=== PATIENT | male | born 1985 | race Hispanic/Latino ===

== ENCOUNTER 2023-10-04 09:50 | Emergency (ER) | payer SELFPAY ==
[2023-10-04 09:52] VITALS: BP 149/84
--- NOTE | 2023-10-04 10:19 | EDRN ---
Darrell WHITTAKER in room w/pt.
[2023-10-04] MEDS: DELTASONE 50 MG PO (10:43)
[2023-10-04 10:44] VITALS: BMI 42.8
[2023-10-04 11:00] VITALS: BP 115/67
--- NOTE | 2023-10-04 11:03 | ED.MUSCINJ ---
HPI-Injury
General
Chief Complaint: Musculo-Skeletal Complaint
Source: patient
Exam Limitations: none
Time Seen by Provider: 10/04/23 10:02
Travel History
Have you had any contact with someone who has COVID-19?: No
Do you have any symptoms of coronavirus? Fever > 100 degrees, chills, cough, shortness of breath, sore throat, loss of taste or smell, muscle aches, or headache?: No
History of Present Illness-Injury
Initial Injury comments:
37-year-old male presents complaining of onset of to the hands starting this morning. Mainly at the long and ring fingers bilaterally. He denies associated headache neck pain chest pain or shortness of breath. No rash or fever. He states several
years ago he was diagnosed with gout and was treated with anti-inflammatories. The symptom feels similar to prior issues in the past. No leg symptoms. He is not diabetic. No other complaints at this time
Past History
Past History
ED Past Medical History: Other (Gallbladder stones and sludge)
ED Past Surgical History: Orthopedic (Right hand surgery); Negative Appendectomy or Bowel resection
Social History
Tobacco: Smoker
Alcohol: Occasional
Drug: None
Personal:
Living: with family
Employment: Employed
Family History
Family History: Other
Phy Exam
Physical Exam
Physical Exam:
General: Well-appearing male no acute respiratory distress
HEENT: Normocephalic atraumatic
Heart: Regular rate and rhythm no murmurs
Lungs: Clear to auscultation bilaterally no wheezing
Abdomen: Soft nontender nondistended no guarding rebound normal bowel sounds extremities: No cyanosis or edema
Neurologic exam: Alert and oriented x 3 no facial asymmetry or slurred speech good sensation to light touch both hands
Vascular: 2+ radial pulse right wrist and left wrist skin is warm no rash or lesion
Musculoskeletal exam: Active range of motion of fingers is painful however passive is less painful. No swelling of the digits
Injury Course
Orders/Labs/Results
Orders:
Orders
10/04/23 10:26
Prednisone [Deltasone] 50 mg PO NOW STA
*Critical Care Note
Total Time (30-74mins, 75-104mins- exclusive of procedures): Not Applicable
Update Note
Update Note:
Bilateral hand pain. Question Neuropathy versus inflammatory condition such as gout. No concerning findings of cellulitis. There is no neurologic deficit. Will treat with steroids
ED Attending Note
-
Portions of this chart may have been created with voice recognition software.� Occasional wrong word or��sound alike� substitutions may have occurred due to the inherent limitations of voice recognition software.
Discharge Plan
Departure
Patient Disposition: Home (Routine Discharge)
Date of Disposition: 10/04/23
Time of Disposition: 11:08
Patient with high blood pressure during this ER visit?: No
Discharge Problem:
Hand pain
Instructions: Gout ED
Prescriptions:
New
prednisone 10 mg Tablet
See Rx Instructions .ROUTE .COMPLEX Qty: 30 0RF
Rx Instructions:
Take By Mouth:
40 mg daily x3 days, 30 mg daily x3 days,
20 mg daily x3 days, 10 mg daily x3 days.
No Action
lansoprazole 30 MG tablet,disintegrat, delay rel
30 mg PO DAILY Qty: 14 0RF
Rx Instructions:
Take with dinner
pantoprazole [Protonix] 40 mg tablet,delayed release (DR/EC)
40 mg PO BID Qty: 30 0RF
sucralfate [Carafate] 1 gram tablet
1 g PO AC Qty: 60 0RF
oxycodone 5 mg tablet
5 mg PO Q8H PRN (Reason: pain) Qty: 8 0RF
pantoprazole [Protonix] 40 mg tablet,delayed release (DR/EC)
40 mg PO DAILY Qty: 10 0RF
sucralfate [Carafate] 1 gram tablet
1 g PO ACHS Qty: 40 0RF
pantoprazole [Protonix] 40 mg tablet,delayed release (DR/EC)
40 mg PO DAILY Qty: 30 0RF
Referrals:
NONE,* [Family Provider] -
Activity Restrictions/Additional Instructions:
Use steriods as directed. Rest. Return if needed otherwise follow up with PMD.
Interventions
Interventions:
*Risk Screen - Suicide Last Done: 10/04/23 10:15
*General Assessment Last Done: 10/04/23 10:15
*Neglect/Abuse Screening Last Done: 10/04/23 10:15
ED- Fall Risk Assessment Last Done: 10/04/23 10:15
*ED COVID-19 Vaccine History Last Done: 10/04/23 10:15
ED-Musculoskeletal Assessment Last Done: 10/04/23 10:15
== END 2023-10-04 11:25 | disposition home or self-care (01) ==
LOC: EMR 09:50
PROVIDERS: EMERGENCY PHYSICIAN Emergency Medicine
DX: M79.642 Pain in left hand (principal); M79.641 Pain in right hand; F17.200 Nicotine dependence, unspecified, uncomplicated
CPT/HCPCS: 99283

== ENCOUNTER 2024-03-07 07:43 | Emergency (ER) | payer SELFPAY ==
[2024-03-07 07:46] VITALS: BP 133/65
--- NOTE | 2024-03-07 08:22 | ED.MUSCINJ ---
HPI-Injury
<Andrew Farrell DO, Resident - Last Filed: 03/07/24 09:29>
General
Chief Complaint: Musculo-Skeletal Complaint
Source: patient
Time Seen by Provider: 03/07/24 07:52
History of Present Illness-Injury
Is this injury a work related problem?: Yes
Is pt an associate of [facility]?: No
Initial Injury comments:
Pt is a 38 YO M presenting to the ED after hitting his right arm against a metal frame at work. He reports experiencing 10/10 pain and is having significant difficulty with movement of the right lower extremity. 10 years ago he had surgery of the
radius with plates and screws placed at [place], [place] with Dr. De La Cruz. He did not take any medications prior to arriving.
Past History
<Andrew Farrell DO, Resident - Last Filed: 03/07/24 09:29>
Past History
ED Past Medical History: Other (Gallbladder stones and sludge)
ED Past Surgical History: Orthopedic (Right hand surgery); Negative Appendectomy or Bowel resection
Patient has exhibited threatening behavior?: No
Social History
Tobacco: Smoker
Alcohol: Occasional
Drug: None
Personal:
Living: with family
Employment: Employed
Family History
Family History: Other
Review of Systems
<Andrew Farrell DO, Resident - Last Filed: 03/07/24 09:29>
Review of Systems
Allergies reviewed?: Yes
Constitutional: Reports other (pain)
Respiratory: Reports no symptoms
Cardiac: Reports no symptoms
Musculoskeletal: Reports muscle pain and other (right arm pain)
Skin: Reports other (swelling of right arm)
Neurological: Reports numbness (numbness of digits 1-2 on right hand)
Musculoskeletal Injury Exam
<Andrew Farrell DO, Resident - Last Filed: 03/07/24 09:29>
Musculoskeletal Injury Exam
Right Lower Medial Radial Arm:
Pain with Movement?: Severe
Tender to palpation?: Severe
Soft tissue swelling?: Moderate
External deformity and angulation?: None
Joint effusion?: None
Hematoma-local bleeding into tissue?: None
Strain- Sprain- Tear (Connective tissue injury)?: Severe
Crepitus with movement?: No
Joint instability?: No
Malalignment/deformity?: No
Range of motion: Limited (significant pain with pronation and flexion of wrist)
Capillary Refill: normal
Phy Exam
<Andrew Farrell DO, Resident - Last Filed: 03/07/24 09:29>
General Physical Exam
General Presentation: well appearing and mild distress
General age: appears stated age
General Skin: warm
General Mental: alert
General Hydration: appears well hydrated
Musculoskeletal Exam
Musculoskeletal Exam: other (pain with pronation and flexion of wrist)
Injury Course
<Andrew Farrell DO, Resident - Last Filed: 03/07/24 09:29>
Orders/Labs/Results
Orders:
Orders
03/07/24 07:49
CR Forearm - Right 2 View Urgent
Comment:
Reason For Exam: injury/pain
03/07/24 08:27
Ibuprofen [Motrin] 800 mg PO NOW STA
03/07/24 09:14
Sling Right-Treatment ONCE
<Isidoro Carrion, DO - Last Filed: 03/07/24 09:45>
Orders/Labs/Results
Orders:
Orders
03/07/24 07:49
CR Forearm - Right 2 View Urgent
Comment:
Reason For Exam: injury/pain
03/07/24 08:27
Ibuprofen [Motrin] 800 mg PO NOW STA
03/07/24 09:14
Sling Right-Treatment ONCE
<Andrew Farrell DO, Resident - Last Filed: 03/07/24 09:29>
MDM/Problems Addressed
Differential Diagnosis Includes:
radial fracture, muscle strain
MDM/Problems Addressed:
Pt is a 38 YO M with pmh of radial fracture with acute injury to right lower extremity after hitting it against a metal frame at work this morning. His pain is being managed with 800 mg Ibuprofen and ice. CR was ordered and report shows no break.
Recommended 2 days off from work and gradual transition back. For pain management at home, discussed 800 mg Ibuprofen Q6-8H or 400 mg Tylenol Q4H. Patient was discharged with sling and note for work.
Chronic conditions affecting care:
previous radial fracture
Acute Exacerbation and/or Progression of Chronic Illness:
previous radial fracture
<Andrew Farrell DO, Resident - Last Filed: 03/07/24 09:29>
*Radiology
Radiology exam reviewed: preliminary read by ED provider (CR right arm read and imaging negative for fracture)
*Pulse Oximetry
Patient hypoxic: no
*EKG
Interpreted by ED Provider?: NA
*Rail Project Engineer Interpretation
Rate: Rail Project Engineer- N/A
*Critical Care Note
Total Time (30-74mins, 75-104mins- exclusive of procedures): Not Applicable
ED Attending Note
<Andrew Farrell DO, Resident - Last Filed: 03/07/24 09:29>
-
Portions of this chart may have been created with voice recognition software.� Occasional wrong word or��sound alike� substitutions may have occurred due to the inherent limitations of voice recognition software.
<Isidoro Carrion DO - Last Filed: 03/07/24 09:45>
ED Attending Note
Patient seen and examined by attending physician: Yes
I performed a history and physical exam of patient and discussed management with resident, I reviewed resident's note and agree with documented findings and plan of care.: Yes
ED Attending Note:
I reviewed and agree with patient treatment plan by Andrew Farrell. My exam revealed 30-year-old male in no acute distress. Tender palpation proximal third of the forearm on the right. No fracture seen on x-ray. Reviewed with Dr. Lin, who also
agrees no fracture. Patient will be discharged to follow-up with primary. Work note given.
Discharge Plan
Departure
Patient Disposition: Home (Routine Discharge)
Date of Disposition: 03/07/24
Time of Disposition: 09:17
Patient with high blood pressure during this ER visit?: Yes
Condition: Good
Discharge Problem:
Injury of right forearm and wrist
Instructions: Muscle and Bone Pain (DC), Contusion (DC), BLOOD PRESSURE
Prescriptions:
No Action
lansoprazole 30 MG tablet,disintegrat, delay rel
30 mg PO DAILY Qty: 14 0RF
Rx Instructions:
Take with dinner
pantoprazole [Protonix] 40 mg tablet,delayed release (DR/EC)
40 mg PO BID Qty: 30 0RF
sucralfate [Carafate] 1 gram tablet
1 g PO AC Qty: 60 0RF
oxycodone 5 mg tablet
5 mg PO Q8H PRN (Reason: pain) Qty: 8 0RF
pantoprazole [Protonix] 40 mg tablet,delayed release (DR/EC)
40 mg PO DAILY Qty: 10 0RF
sucralfate [Carafate] 1 gram tablet
1 g PO ACHS Qty: 40 0RF
pantoprazole [Protonix] 40 mg tablet,delayed release (DR/EC)
40 mg PO DAILY Qty: 30 0RF
prednisone 10 mg Tablet
See Rx Instructions .ROUTE .COMPLEX Qty: 30 0RF
Rx Instructions:
Take By Mouth:
40 mg daily x3 days, 30 mg daily x3 days,
20 mg daily x3 days, 10 mg daily x3 days.
Referrals:
Gisele Ceja PA [Family Provider] - Follow up in 5-7 days
Stand Alone Forms: Return to Work
Interventions
Interventions:
*Risk Screen - Suicide Last Done: 03/07/24 07:46
*General Assessment Last Done: 03/07/24 08:13
*Neglect/Abuse Screening Last Done: 03/07/24 07:46
ED- Fall Risk Assessment Last Done: 03/07/24 09:27
*ED COVID-19 Vaccine History Last Done: 03/07/24 07:46
*Nursing Disposition Last Done: 03/07/24 09:27
ED-Musculoskeletal Assessment Last Done: 03/07/24 08:14
Discharge Date and Time
Discharge Date/Time: 03/07/24 09:35
Print Language: LATVIAN
[2024-03-07] MEDS: MOTRIN 800 MG PO (08:34)
[2024-03-07 09:26] VITALS: BP 112/69
== END 2024-03-07 09:35 | disposition home or self-care (01) ==
LOC: EMR 07:43
PROVIDERS: EMERGENCY PHYSICIAN Emergency Medicine; FAMILY PHYSICIAN Physician Assistant
DX: S59.911A Unspecified injury of right forearm, initial encounter (principal); M79.631 Pain in right forearm; R20.0 Anesthesia of skin; M79.18 Myalgia, other site; W22.09XA Striking against other stationary object, initial encounter; Y93.89 Activity, other specified; Y92.89 Other specified places as the place of occurrence of the external cause; Y99.0 Civilian activity done for income or pay; R03.0 Elevated blood-pressure reading, without diagnosis of hypertension; F17.200 Nicotine dependence, unspecified, uncomplicated
CPT/HCPCS: 99283; 73090

== ENCOUNTER 2024-06-09 19:57 | Emergency (ER) | payer OTHER, SELFPAY ==
[2024-06-09 20:04] VITALS: BP 144/92
[2024-06-09 20:24] LABS: % Basophils 0.6 % (0-2); % Eosinophils 1.8 % (0-6); % Immature Granulocytes 0.4 % (0-0.5); % Lymphocytes 23.2 % (20.5-51.1); % Monocytes 8.4 % (1.7-9.3); % Neutrophils 65.6 % (42.2-75.2); Absolute Basophils 0.1 10^3/uL (0-0.2); Absolute Eosinophils 0.2 10^3/uL (0-0.7); Absolute Lymphocytes 2.2 10^3/uL (1.2-3.4); Absolute Monocytes 0.8 10^3/uL (0.1-0.6); Absolute Neutrophils 6.1 10^3/uL (1.4-6.5); Hematocrit 41.7 % (39.0-52.0); Hemoglobin 15.3 g/dL (13.0-18.0); Mean Corp Hgb Conc. 36.7 g/dL (33.0-37.0); Mean Corpuscular Hgb 31.6 pg (27.0-31.0); Mean Corpuscular Volume 86.2 fL (80.0-94.0); Mean Platelet Volume 9.4 fL (7.4-10.4); Nucleated Red Blood Cells % 0 % (-); Platelet Count 254 10^3/uL (130-400); Red Blood Cell Count 4.84 10^6/uL (4.70-6.10); Red Cell Dist. Width 12.4 % (11.5-14.5); White Blood Cell Count 9.3 10^3/uL (4.8-10.8)
[2024-06-09 20:39] LABS: ALT (SGPT) 22 U/L (0-50); AST (SGOT) 25 U/L (17-59); Albumin 4.3 g/dl (3.5-5.0); Alkaline Phosphatase 57 U/L (38-126); Blood Urea Nitrogen 15 mg/dl (9-20); Calcium 9.4 mg/dl (8.4-10.2); Carbon Dioxide 21 mmol/L (22-30); Chloride 104 mmol/L (98-107); Glucose 112 mg/dl (70-99); Potassium 4.2 mmol/L (3.5-5.1); Sodium 138 mmol/L (135-145); Total Bilirubin 0.5 mg/dl (0.2-1.3); Total Protein 6.8 g/dl (6.3-8.2); eGFR > 60.00
[2024-06-09 22:31] VITALS: BP 123/73
[2024-06-09 23:35] VITALS: BP 114/81; BMI 45.3
[2024-06-09] MEDS: NSS 1000 IV (23:36)
[2024-06-09] MEDS: TORADOL 15 MG IV (23:36)
[2024-06-09] MEDS: PEPCID 20 MG IV (23:37)
[2024-06-09] MEDS: MAALOX 30 ML PO (23:37)
--- NOTE | 2024-06-09 23:43 | ED.GENMED ---
History of Present Illness
General
Chief Complaint: Abdominal Pain
Time Seen by Provider: 06/09/24 23:06
History of Present Illness
History of Present Illness:
38-year-old male with prior history of GERD presenting to the emergency department for upper abdominal pain. Patient reports symptoms started around 2 PM this afternoon. He has since had several episodes of vomiting. Reports that he did have
[employer] prior to onset of symptoms, however the food was not spicy. He notes that he takes Nexium intermittently, last had yesterday. Denies changes in his stool. Denies chest pain or difficulty breathing. Denies history of abdominal surgeries.
Denies fever. Denies additional acute medical complaints
Past History
Past History
ED Past Medical History: Other (Gallbladder stones and sludge)
ED Past Surgical History: Orthopedic (Right hand surgery); Negative Appendectomy or Bowel resection
Patient has exhibited threatening behavior?: No
Social History
Tobacco: Smoker
Alcohol: Occasional
Drug: None
Personal:
Living: with family
Employment: Employed
Family History
Family History: Other
Phy Exam
Physical Exam
Physical Exam:
General: Well-appearing, no clinical signs of dehydration, nontoxic and in no acute distress
HEENT: protecting airway
Neck: appears supple
CV: Normal heart rate, regular rhythm
Resp: No accessory muscle use, no increased work of breathing, lungs clear to auscultation bilaterally
Abd: Reproducible tenderness to the epigastric and right upper quadrant, no rebound or guarding. Otherwise soft and nondistended
Extremities: No deformities, no swelling
Neuro: alert, no focal neurologic deficit
: deferred
Rectal: deferred
Psych: Normal affect
Skin: Intact
Course
Orders/Labs/Results
Orders:
Orders
06/09/24 19:59
Electrocardiogram (*1) Urgent
Reason for Study: Abdominal Pain
EKG- Treatment ONCE
06/09/24 20:12
Complete Blood Count/With Diff Urgent
Comprehensive Metabolic Panel Urgent
Lipase Urgent
Comment: ADD ON
06/09/24 23:22
0.9% Sodium Chloride 1000 ml [Nss] 1,000 ml IV BOLUS
Famotidine [Pepcid] 20 mg IV NOW STA
Ketorolac [Toradol] 15 mg IV NOW STA
Mag Hydrox/Al Hydrox/Simeth [Maalox] 30 ml PO NOW STA
06/09/24 23:28
US Abdomen Complete/Upper Urgent
Comment:
Reason For Exam: RUQ pain, vomiting
06/09/24 23:45
Add On- LAB Urgent
Tests Added?: lipase
06/10/24 01:07
Ondansetron Injectable [Zofran] 4 mg IV NOW STA
06/10/24 01:08
Viscous Lidocaine 2% [Xylocaine Viscous Cup] 15 ml PO ONCE ONE
06/10/24 01:30
CT Abd/pelvis W Iv Cont Urgent
Comment:
Reason For Exam: upper abdominal pain
Abnormal Lab Results
06/09/24
20:12
MCH 31.6 H pg
(27.0-31.0)
Absolute Monos (auto) 0.8 H 10^3/uL
(0.1-0.6)
Carbon Dioxide 21 L mmol/L
(22-30)
Glucose 112 H mg/dl
(70-99)
06/09/24 20:12
06/09/24 20:12
Vital Signs
Initial and Last Documented VS:
Initial Vital Signs
Temp Pulse Resp BP Pulse Ox
97.9 F 73 16 144/92 98
06/09/24 20:04 06/09/24 20:04 06/09/24 20:04 06/09/24 20:04 06/09/24 20:04
Last Documented Vital Signs
Temp Pulse Resp BP Pulse Ox
97.9 F 51 16 114/74 98
06/09/24 20:04 06/10/24 03:25 06/10/24 03:25 06/10/24 03:25 06/10/24 03:25
MDM/Problems Addressed
MDM/Problems Addressed:
38-year-old male with history of GERD/gastritis presenting for upper abdominal pain with vomiting. Vital signs on arrival are normal.
On exam patient is well-appearing, no acute distress or discomfort. He is afebrile, nontoxic. On abdominal exam, generalized tenderness to the epigastric and right upper quadrant. No rebound or guarding. Differential considerations include GERD
versus gastritis versus pancreatitis versus cholelithiasis versus cholecystitis. For this reason we will obtain laboratory analysis including lipase. Will also obtain right upper quadrant ultrasound imaging. For therapeutics will administer IV
fluids, Pepcid, Maalox, Toradol and reassess for improvement.
01:00 -Labs are unremarkable and ultrasound shows distended gallbladder without additional signs of acute cholecystitis. On reassessment patient is resting comfortably, does note symptom improvement, however reports that it still present,
requesting more medication. Will administer Zofran and viscous lidocaine. Given persistence of symptoms, will obtain CT abdomen pelvis to ensure no additional acute process.
04:50 -CT without acute abnormality. Does show diffuse gastric wall thickening, consistent with patient's symptoms. Feel stable for discharge with continued supportive therapy with PPI. Patient continues to rest comfortably. Advised outpatient
GI follow-up. Return precautions discussed and patient verbalized understanding
*Critical Care Note
Total Time (30-74mins, 75-104mins- exclusive of procedures): Not Applicable
ED Attending Note
-
Portions of this chart may have been created with voice recognition software.� Occasional wrong word or��sound alike� substitutions may have occurred due to the inherent limitations of voice recognition software.
Discharge Plan
Departure
Patient Disposition: Home (Routine Discharge)
Date of Disposition: 06/10/24
Time of Disposition: 04:53
Patient with high blood pressure during this ER visit?: No
Condition: Good
Discharge Problem:
Gastritis
Instructions: Acid Reflux and GERD in Adults (DC), Gastritis (DC)
Prescriptions:
No Action
lansoprazole 30 MG tablet,disintegrat, delay rel
30 mg PO DAILY Qty: 14 0RF
Rx Instructions:
Take with dinner
pantoprazole [Protonix] 40 mg tablet,delayed release (DR/EC)
40 mg PO BID Qty: 30 0RF
sucralfate [Carafate] 1 gram tablet
1 g PO AC Qty: 60 0RF
oxycodone 5 mg tablet
5 mg PO Q8H PRN (Reason: pain) Qty: 8 0RF
pantoprazole [Protonix] 40 mg tablet,delayed release (DR/EC)
40 mg PO DAILY Qty: 10 0RF
sucralfate [Carafate] 1 gram tablet
1 g PO ACHS Qty: 40 0RF
pantoprazole [Protonix] 40 mg tablet,delayed release (DR/EC)
40 mg PO DAILY Qty: 30 0RF
prednisone 10 mg Tablet
See Rx Instructions .ROUTE .COMPLEX Qty: 30 0RF
Rx Instructions:
Take By Mouth:
40 mg daily x3 days, 30 mg daily x3 days,
20 mg daily x3 days, 10 mg daily x3 days.
Referrals:
NONE,* [Family Provider] -
Activity Restrictions/Additional Instructions:
You were seen in the emergency department for upper abdominal pain
You were found to have inflammation to your stomach, consistent with gastritis
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
Return to the emergency department for any worsening of your symptoms, or any development of chest pain, difficulty breathing, abdominal pain with persistent vomiting and inability to tolerate food or liquid by mouth (concern for dehydration),
weakness, headache or confusion, fever greater than 100.4, or any additional symptoms that are concerning to you.
Thank you for choosing [facility].
Interventions
Interventions:
*Risk Screen - Suicide Last Done: 06/09/24 20:00
*General Assessment Last Done: 06/09/24 22:46
*Neglect/Abuse Screening Last Done: 06/09/24 22:46
*ED COVID-19 Vaccine History Last Done: 06/09/24 22:46
*Nursing Disposition Last Done: 06/10/24 05:05
NW-Xqygys-Jycwkxujcx Assessment Last Done: 06/09/24 23:35
Discharge Date and Time
Discharge Date/Time: 06/10/24 05:05
Print Language: SAO TOMEAN
[2024-06-10 00:40] LABS: Lipase 72 U/L (23-300)
[2024-06-10 03:25] VITALS: BP 114/74
== END 2024-06-10 05:05 | disposition home or self-care (01) ==
LOC: EMR 19:57
PROVIDERS: Student in an Organized Health Care Education/Training Program; EMERGENCY PHYSICIAN Student in an Organized Health Care Education/Training Program
DX: K29.00 Acute gastritis without bleeding (principal); K82.8 Other specified diseases of gallbladder; K21.9 Gastro-esophageal reflux disease without esophagitis; F17.200 Nicotine dependence, unspecified, uncomplicated
CPT/HCPCS: 99284; 96374; 96375 ×2; 96361; 74177; 76700; 80053; 83690; 85025; 93005; Q9967

== ENCOUNTER 2024-09-10 04:08 | Emergency (ER) | payer OTHER, SELFPAY ==
[2024-09-10 04:08] VITALS: BMI 44.9
[2024-09-10 04:10] VITALS: BP 124/80
--- NOTE | 2024-09-10 04:16 | ED.GENMED ---
History of Present Illness
General
Chief Complaint: Abdominal Pain
Time Seen by Provider: 09/10/24 04:17
History of Present Illness
History of Present Illness:
TIME OF INITIAL ENCOUNTER: 4:20 AM
HPI: The patient started having some abdominal discomfort 4 hours ago and then the pain dramatically worsened around 2 hours ago. This is associated with vomiting. He has not had any diarrhea. He had a similar less severe episode in the past.
EXAM:
GENERAL: The patient appears very uncomfortable
HEENT: Moist oral mucosa
CARDIOVASCULAR: No murmurs, normal heart rate, regular rhythm, No chest wall tenderness
PULMONARY: No respiratory distress, breath sounds are clear and equal
ABDOMEN: Soft with no peritoneal signs, moderate diffuse abdominal tenderness more so in the upper abdomen, elevated BMI
NEUROLOGIC: Excellent strength all extremities, no coordination deficits
PSYCHIATRIC: Appropriate mental status, normal insight and judgement
EXTREMITIES: Nontender, no edema, moves all extremities equally
SKIN: No rash, no lesions
NUMBER AND COMPLEXITY OF PROBLEMS ADDRESSED AT THE ENCOUNTER
� Chronic conditions affecting care: Is a smoker, prior imaging showed gallbladder sludge and stones, GERD
� Acute Exacerbation and/or Progression of Chronic Illness: This is an acute but recurring problem
� Differential Diagnosis includes: Chemistries are unremarkable, CBC is normal, LFTs and lipase normal
AMOUNT AND/OR COMPLEXITY OF DATA TO BE REVIEWED AND ANALYZED
� I performed an independent evaluation of and my interpretation is:
EKG:
CT: CT imaging shows a distended gallbladder however I did compare this to the CAT scan from 06/10/2024 and at that time the morphology of the gallbladder was the same�at that time there was no sign of cholecystitis or gallstones
X-rays:
Laboratory Studies: White count is 7.1, hemoglobin 15.5, chemistries unremarkable, LFTs and lipase normal
Other: Ultrasound imaging of the right upper quadrant unremarkable
� Review of other/old records: The patient was seen here with epigastric pain 2 months ago and at that time CT imaging showed diffuse gastric wall thickening
� Clinical information was obtained by an independent historian: None needed
� Prescriptions/Medications Considered but not given:
� Further testing considered but not performed:
RISK OF COMPLICATIONS AND/OR MORBIDITY OR MORTALITY OF PATIENT MANAGEMENT
� Social determinants of health affecting care: Lives at home
� Discussion with other providers:
� Escalation of care including admission/observation vs risk of discharge considered: See below
ANY OTHER UPDATES:
7 AM: Pain persists however the ED workup is unremarkable. No clear indication for admission to the hospital. Will give a short course of tramadol.
Past History
Past History
ED Past Medical History: Other (Gallbladder stones and sludge)
ED Past Surgical History: Orthopedic (Right hand surgery); Negative Appendectomy or Bowel resection
Patient has exhibited threatening behavior?: No
Social History
Tobacco: Smoker
Alcohol: Occasional
Drug: None
Personal:
Living: with family
Employment: Employed
Family History
Family History: Other
Phy Exam
Physical Exam
Physical Exam:
See HPI
Course
Orders/Labs/Results
Orders:
Orders
09/10/24 04:24
CT Abd/pelvis W Iv Cont Urgent
Comment:
Reason For Exam: diffuse severe abd pain; vomiting
0.9% Sodium Chloride 1000 ml [Nss] 1,000 ml IV BOLUS
HYDROmorphone [Dilaudid] 1 mg IV NOW STA
Ondansetron Injectable [Zofran] 4 mg IV NOW STA
09/10/24 04:25
Famotidine [Pepcid] 20 mg IV NOW STA
09/10/24 04:34
Complete Blood Count/With Diff Urgent
Comprehensive Metabolic Panel Urgent
Lipase Urgent
09/10/24 05:49
Ketorolac [Toradol] 15 mg IV NOW STA
09/10/24 06:01
US Abdomen Limited Urgent
Reason For Exam: distended GB on CT; upper pain
Abnormal Lab Results
09/10/24
04:34
MCH 32.2 H pg
(27.0-31.0)
Absolute Monos (auto) 0.7 H 10^3/uL
(0.1-0.6)
Monocytes % 9.5 H %
(1.7-9.3)
Glucose 103 H mg/dl
(70-99)
09/10/24 04:34
09/10/24 04:34
Vital Signs
Initial and Last Documented VS:
Initial Vital Signs
Temp Pulse Resp BP Pulse Ox
36.6 C 64 18 124/80 100
09/10/24 04:10 09/10/24 04:10 09/10/24 04:10 09/10/24 04:10 09/10/24 04:10
Last Documented Vital Signs
Temp Pulse Resp BP Pulse Ox
36.6 C 64 18 102/89 99
09/10/24 04:10 09/10/24 04:10 09/10/24 04:10 09/10/24 06:00 09/10/24 06:30
*Critical Care Note
Total Time (30-74mins, 75-104mins- exclusive of procedures): Not Applicable
ED Attending Note
-
Portions of this chart may have been created with voice recognition software.� Occasional wrong word or��sound alike� substitutions may have occurred due to the inherent limitations of voice recognition software.
Discharge Plan
Departure
Patient Disposition: Home (Routine Discharge)
Date of Disposition: 09/10/24
Time of Disposition: 07:03
Patient with high blood pressure during this ER visit?: Yes
Discharge Problem:
Abdominal pain
Instructions: Abdominal Pain
Prescriptions:
New
tramadol 50 mg tablet
50 - 100 mg PO Q8H PRN (Reason: Pain) Qty: 14 0RF
No Action
lansoprazole 30 MG tablet,disintegrat, delay rel
30 mg PO DAILY Qty: 14 0RF
Rx Instructions:
Take with dinner
pantoprazole [Protonix] 40 mg tablet,delayed release (DR/EC)
40 mg PO BID Qty: 30 0RF
sucralfate [Carafate] 1 gram tablet
1 g PO AC Qty: 60 0RF
oxycodone 5 mg tablet
5 mg PO Q8H PRN (Reason: pain) Qty: 8 0RF
pantoprazole [Protonix] 40 mg tablet,delayed release (DR/EC)
40 mg PO DAILY Qty: 10 0RF
sucralfate [Carafate] 1 gram tablet
1 g PO ACHS Qty: 40 0RF
pantoprazole [Protonix] 40 mg tablet,delayed release (DR/EC)
40 mg PO DAILY Qty: 30 0RF
prednisone 10 mg Tablet
See Rx Instructions .ROUTE .COMPLEX Qty: 30 0RF
Rx Instructions:
Take By Mouth:
40 mg daily x3 days, 30 mg daily x3 days,
20 mg daily x3 days, 10 mg daily x3 days.
Referrals:
Amy Quan MD [Active] - As needed
NONE,* [Family Provider] -
Activity Restrictions/Additional Instructions:
The cause of your symptoms is unclear. If you are not already taking a PPI medication, I recommend that you take something like omeprazole which is [id number]. I sent a prescription for a short course of tramadol to the [facility] on [address]
have also given you the contact information for local GI doctor.
Interventions
Interventions:
*Risk Screen - Suicide Last Done: 09/10/24 04:10
*General Assessment Last Done: 09/10/24 04:10
*Neglect/Abuse Screening Last Done: 09/10/24 04:10
*ED COVID-19 Vaccine History Last Done: 09/10/24 04:10
BH-Gehpxu-Zqrafmrqma Assessment Last Done: 09/10/24 04:52
Discharge Date and Time
Print Language: MACEDONIAN
[2024-09-10] MEDS: DILAUDID 1 MG IV (04:39)
[2024-09-10] MEDS: ZOFRAN 4 MG IV (04:39)
[2024-09-10] MEDS: NSS 1000 IV (04:43)
[2024-09-10 04:44] LABS: % Basophils 0.6 % (0-2); % Eosinophils 2.6 % (0-6); % Immature Granulocytes 0.4 % (0-0.5); % Lymphocytes 30.6 % (20.5-51.1); % Monocytes 9.5 % (1.7-9.3); % Neutrophils 56.3 % (42.2-75.2); Absolute Eosinophils 0.2 10^3/uL (0-0.7); Absolute Lymphocytes 2.2 10^3/uL (1.2-3.4); Absolute Monocytes 0.7 10^3/uL (0.1-0.6); Hematocrit 43.3 % (39.0-52.0); Hemoglobin 15.5 g/dL (13.0-18.0); Mean Corp Hgb Conc. 35.8 g/dL (33.0-37.0); Mean Corpuscular Hgb 32.2 pg (27.0-31.0); Mean Corpuscular Volume 89.8 fL (80.0-94.0); Mean Platelet Volume 9.2 fL (7.4-10.4); Nucleated Red Blood Cells % 0 % (-); Platelet Count 263 10^3/uL (130-400); Red Blood Cell Count 4.82 10^6/uL (4.70-6.10); Red Cell Dist. Width 12.2 % (11.5-14.5); White Blood Cell Count 7.1 10^3/uL (4.8-10.8)
[2024-09-10] MEDS: PEPCID 20 MG IV (04:46)
[2024-09-10 04:52] VITALS: BP 117/71
[2024-09-10 04:58] LABS: ALT (SGPT) 25 U/L (0-50); AST (SGOT) 29 U/L (17-59); Albumin 4.2 g/dl (3.5-5.0); Alkaline Phosphatase 68 U/L (38-126); Blood Urea Nitrogen 17 mg/dl (9-20); Calcium 8.9 mg/dl (8.4-10.2); Carbon Dioxide 27 mmol/L (22-30); Chloride 102 mmol/L (98-107); Estimated Creatinine Clearance > 125 ml/min; Glucose 103 mg/dl (70-99); Lipase 99 U/L (23-300); Potassium 3.9 mmol/L (3.5-5.1); Sodium 138 mmol/L (135-145); Total Bilirubin 0.4 mg/dl (0.2-1.3); Total Protein 6.8 g/dl (6.3-8.2); eGFR > 60.00
[2024-09-10 05:00] VITALS: BP 132/87
[2024-09-10] MEDS: TORADOL 15 MG IV (05:54)
[2024-09-10 06:00] VITALS: BP 102/89
[2024-09-10 07:30] VITALS: BP 104/56
--- NOTE | 2024-09-10 07:30 | EDRN ---
REviewed discharge instructions with patient. Verbalized understanding. Calling family for a ride home.
== END 2024-09-10 07:50 | disposition home or self-care (01) ==
LOC: EMR 04:08
PROVIDERS: EMERGENCY PHYSICIAN Emergency Medicine
DX: R10.9 Unspecified abdominal pain (principal); F17.200 Nicotine dependence, unspecified, uncomplicated
CPT/HCPCS: 99285; 96374; 96375 ×3; 96361 ×2; 74177; 76705; 80053; 83690; 85025; Q9967

== ENCOUNTER 2024-12-27 22:53 | Emergency (ER) | payer OTHER, SELFPAY ==
[2024-12-27 22:57] VITALS: BP 101/61
[2024-12-27 23:13] LABS: % Basophils 0.6 % (0-2); % Eosinophils 1.9 % (0-6); % Immature Granulocytes 0.3 % (0-0.5); % Lymphocytes 26.4 % (20.5-51.1); % Monocytes 7.4 % (1.7-9.3); % Neutrophils 63.4 % (42.2-75.2); Absolute Basophils 0.1 10^3/uL (0-0.2); Absolute Eosinophils 0.2 10^3/uL (0-0.7); Absolute Lymphocytes 2.4 10^3/uL (1.2-3.4); Absolute Monocytes 0.7 10^3/uL (0.1-0.6); Absolute Neutrophils 5.6 10^3/uL (1.4-6.5); Hematocrit 41.1 % (39.0-52.0); Hemoglobin 14.9 g/dL (13.0-18.0); Mean Corp Hgb Conc. 36.3 g/dL (33.0-37.0); Mean Corpuscular Hgb 31.8 pg (27.0-31.0); Mean Corpuscular Volume 87.8 fL (80.0-94.0); Mean Platelet Volume 9.5 fL (7.4-10.4); Nucleated Red Blood Cells % 0 % (-); Platelet Count 234 10^3/uL (130-400); Red Blood Cell Count 4.68 10^6/uL (4.70-6.10); Red Cell Dist. Width 13.1 % (11.5-14.5); White Blood Cell Count 8.9 10^3/uL (4.8-10.8)
[2024-12-27 23:29] LABS: ALT (SGPT) 12 U/L (0-50); AST (SGOT) 20 U/L (17-59); Albumin 4.1 g/dl (3.5-5.0); Alkaline Phosphatase 54 U/L (38-126); Blood Urea Nitrogen 18 mg/dl (9-20); Calcium 9.1 mg/dl (8.4-10.2); Carbon Dioxide 28 mmol/L (22-30); Chloride 104 mmol/L (98-107); Glucose 103 mg/dl (70-99); Lipase 141 U/L (23-300); Potassium 3.8 mmol/L (3.5-5.1); Sodium 139 mmol/L (135-145); Total Bilirubin 0.6 mg/dl (0.2-1.3); Total Protein 6.6 g/dl (6.3-8.2); eGFR > 60.00
[2024-12-28 01:30] VITALS: BP 114/82
[2024-12-28 02:05] VITALS: BP 128/80
[2024-12-28 03:21] VITALS: BMI 39.8
--- NOTE | 2024-12-28 03:26 | DOWNTIME ---
There was a [facility] [employer] Downtime on 12/28/2024 from 0200 to 12/29/2023 at 0318 . Downtime documentation of patient's care, including medication administrations, has been reconciled in the electronic record per guidelines. Refer to the
patient's paper chart under the miscellaneous tab to see printed paper medication records and downtime forms.
--- NOTE | 2024-12-28 04:08 | ED.GENMED ---
History of Present Illness
General
Chief Complaint: Abdominal Pain
Source: patient, previous radiology exam (Unremarkable CT abdomen pelvis September 2024 as well as unremarkable abdominal ultrasound September 2024 and June 2024) and previous hospital records (ED visits June 2024 and again September 2024 for
somewhat similar abdominal pain complaints)
Exam Limitations: none
Time Seen by Provider: 12/28/24 02:00
Nursing documentation reviewed up to this point in time: agreed with
History of Present Illness
History of Present Illness:
HPI: This is a 39 yo M with hx GERD presents with generalized upper abdominal pain, N/V/D that began this afternoon.�� He has presented to this ED 06/2024 as well as 09/2024 with similar upper abdominal pain complaints and has had unremarkable
abdominal US 06/2024 and again 09/2024 as well as unremarkable CT abdomen/pelvis 09/2024.
He denies hematemesis nor hematochezia.� No fever nor chills.� No recent travel nor recent antibiotic use.
No close contacts with similar symptoms.�� He does note similar symptoms as September and June last year save for diarrhea is new.
He has not taken anything for his symptoms.
He has been maintained on GLP-1 agonist over the past several months, has lost approximately 30 pounds with diet and exercise.
Past History
Past History
ED Past Medical History: GERD
ED Past Surgical History: Orthopedic (Right hand surgery); Negative Appendectomy or Bowel resection
Patient has exhibited threatening behavior?: No
Social History
Tobacco: Smoker
Alcohol: Occasional
Drug: None
Personal:
Living: with family
Employment: Employed
Family History
Family History: Other (Noncontributory)
Phy Exam
Physical Exam
Physical Exam:
General:� 39 yo obese male appears his stated age.� He is awake and alert, appears moderately uncomfortable. Intermittently moaning. Preferentially keeping his eyes closed.� Cooperative.� VSS, WNL
HEENT:� oral mucosa is moist.� Anicteric
Neck: supple, nontender.
Heart: RRR, no murmur
Lungs: CTA, no respiratory distress
Abdomen: �rotund, soft, nondistended.� Moderate generalized TTP no rebound, no guarding, no rigidity.� Normoactive BS. No CVA tenderness.
Extremities: (-)C/C/E�� nontender.� Peripheral pulses are full and equal b/l
Skin: Warm and dry, normal color. Good turgor. No rash.
Neuro: AAO x3.� No focal neuro deficits� gait is steady
Course
Orders/Labs/Results
Orders:
Orders
12/27/24 23:05
Complete Blood Count/With Diff Urgent
Comprehensive Metabolic Panel Urgent
Lipase Urgent
12/28/24 02:11
Morphine Sulfate 4 mg .ROUTE .STK-MED ONE
Ondansetron Injectable [Zofran] 4 mg .ROUTE .STK-MED ONE
Pantoprazole [Protonix IV] 40 mg .ROUTE .STK-MED ONE
12/28/24 04:08
Mag Hydrox/Al Hydrox/Simeth [Maalox] 30 ml Phenobarb/Hyoscy/Atropine/Scop [] 10 ml Viscous Lidocaine 2% [Xylocaine Viscous Cup] 10 ml PO NOW
Sucralfate Suspension [Carafate Suspension] 1 gm PO NOW STA
12/28/24 04:18
Phenobarb/Hyoscy/Atropine/Scop [] 10 ml .ROUTE .STK-MED ONE
12/28/24 04:19
Mag Hydrox/Al Hydrox/Simeth [Maalox] 30 ml .ROUTE .STK-MED ONE
Viscous Lidocaine 2% [Xylocaine Viscous Cup] 15 ml .ROUTE .STK-MED ONE
Abnormal Lab Results
12/27/24
23:05
RBC 4.68 L 10^6/uL
(4.70-6.10)
MCH 31.8 H pg
(27.0-31.0)
Absolute Monos (auto) 0.7 H 10^3/uL
(0.1-0.6)
Glucose 103 H mg/dl
(70-99)
12/27/24 23:05
12/27/24 23:05
Vital Signs
Initial and Last Documented VS:
Initial Vital Signs
Temp Pulse Resp BP Pulse Ox
98.5 F 90 18 101/61 99
12/27/24 22:57 12/27/24 22:57 12/27/24 22:57 12/27/24 22:57 12/27/24 22:57
Last Documented Vital Signs
Temp Pulse Resp BP Pulse Ox
98.5 F 70 24 128/80 98
12/27/24 22:57 12/28/24 01:30 12/28/24 01:30 12/28/24 02:05 12/28/24 02:06
MDM/Problems Addressed
Differential Diagnosis Includes:
MDM:�� concern for gastroenteritis, acute gastritis, biliary colic, pancreatitis, colitis.� Less likely bowel obstruction.
Labs are all within normal limits.
Will medicate for pain nausea as well as initiate IVF and give a dose of Protonix for potential gastritis
Will unremarkable labs and unremarkable imaging 06/2024 and 09/2024�will hold off on repeating imaging for now.
Chronic conditions affecting care: Other (GERD)
*Pulse Oximetry
Patient hypoxic: no
*Critical Care Note
Total Time (30-74mins, 75-104mins- exclusive of procedures): Not Applicable
Update Note
Update Note:
05:30
Patient feeling markedly improved after IV fluids and oral dose of GI cocktail and Carafate.
He has had no vomiting or diarrhea since arrival to the ED.
Abdomen is soft with only minimal tenderness epigastric region.
He does note multiple similar episodes throughout the past several years overall improved with improvement in diet and weight loss.
As above, with reassuring/normal labs, unremarkable imaging June and again September. No indication at this point to repeat.
Will resume daily Protonix and will add short course of Carafate.
Will refer to GI for follow-up.
Return precautions discussed.
ED Attending Note
-
Portions of this chart may have been created with voice recognition software.� Occasional wrong word or��sound alike� substitutions may have occurred due to the inherent limitations of voice recognition software.
Discharge Plan
Departure
Patient Disposition: Home (Routine Discharge)
Date of Disposition: 12/28/24
Time of Disposition: 05:31
Patient with high blood pressure during this ER visit?: No
Condition: Good
Discharge Problem:
Acute gastritis, Acute gastroenteritis
Instructions: Gastritis, Viral gastroenteritis in adults, Newcomb diet
Prescriptions:
New
sucralfate [Carafate] 100 mg/mL suspension
10 ml PO QID PRN (Reason: upper abdominal pain) Qty: 400 0RF
pantoprazole [Protonix] 40 mg tablet,delayed release (DR/EC)
40 mg PO DAILY Qty: 90 0RF
Discontinued
lansoprazole 30 MG tablet,disintegrat, delay rel
30 mg PO DAILY Qty: 14 0RF
Rx Instructions:
Take with dinner
pantoprazole [Protonix] 40 mg tablet,delayed release (DR/EC)
40 mg PO BID Qty: 30 0RF
sucralfate [Carafate] 1 gram tablet
1 g PO AC Qty: 60 0RF
oxycodone 5 mg tablet
5 mg PO Q8H PRN (Reason: pain) Qty: 8 0RF
pantoprazole [Protonix] 40 mg tablet,delayed release (DR/EC)
40 mg PO DAILY Qty: 10 0RF
sucralfate [Carafate] 1 gram tablet
1 g PO ACHS Qty: 40 0RF
pantoprazole [Protonix] 40 mg tablet,delayed release (DR/EC)
40 mg PO DAILY Qty: 30 0RF
prednisone 10 mg Tablet
See Rx Instructions .ROUTE .COMPLEX Qty: 30 0RF
Rx Instructions:
Take By Mouth:
40 mg daily x3 days, 30 mg daily x3 days,
20 mg daily x3 days, 10 mg daily x3 days.
tramadol 50 mg tablet
50 - 100 mg PO Q8H PRN (Reason: Pain) Qty: 14 0RF
Referrals:
Kaycee Robles MD [Family Provider] - Call in 1-3 days for appt
Jabier De Paz DO [Active] - Call in 1-3 days for appt
Interventions
Interventions:
*Risk Screen - Suicide Last Done: 12/27/24 22:57
*General Assessment Last Done: 12/27/24 22:57
*Neglect/Abuse Screening Last Done: 12/27/24 22:57
*ED- Fall Risk Assessment Last Done: 12/27/24 22:57
*ED COVID-19 Vaccine History Last Done: 12/27/24 22:57
UX-Ikzwec-Ixncvosgfq Assessment Last Done: 12/28/24 03:21
Discharge Date and Time
Print Language: TELUGU
[2024-12-28] MEDS: CARAFATE SUSPENSION 1 GM PO (04:22)
[2024-12-28] MEDS: MAALOX 50 PO (04:22)
[2024-12-28 05:34] VITALS: BP 104/62
== END 2024-12-28 05:52 | disposition home or self-care (01) ==
LOC: EMR 22:53
PROVIDERS: Student in an Organized Health Care Education/Training Program; EMERGENCY PHYSICIAN Emergency Medicine; FAMILY PHYSICIAN Family Medicine
DX: K29.00 Acute gastritis without bleeding (principal); K52.9 Noninfective gastroenteritis and colitis, unspecified; K21.9 Gastro-esophageal reflux disease without esophagitis; F17.200 Nicotine dependence, unspecified, uncomplicated
CPT/HCPCS: 99283; 80053; 83690; 85025

== ENCOUNTER 2025-03-01 17:56 | Emergency (ER) | payer OTHER, SELFPAY ==
[2025-03-01 17:57] VITALS: BP 116/92
--- NOTE | 2025-03-01 18:38 | ED.GENMED ---
History of Present Illness
General
Chief Complaint: Abdominal Pain
Time Seen by Provider: 03/01/25 18:31
History of Present Illness
History of Present Illness:
Patient is a 39-year-old male with history of gallstones, gastritis presenting to the emergency department abdominal pain. Patient states that he stopped taking his antacid a few days ago. Today after eating breakfast had significant right upper
quadrant and epigastric abdominal pain. This is similar to prior flareups though much more severe. He did have some vomiting. No fevers or chills. No blood in his emesis. No issues with his bowel movements. He does have known gallstones. Per
chart review patient's had a few emergency department visits for the same. Most of the time his symptoms do resolve with antacids and GI cocktails.
Past History
Past History
ED Past Medical History: GERD
ED Past Surgical History: Orthopedic (Right hand surgery); Negative Appendectomy or Bowel resection
Patient has exhibited threatening behavior?: No
Social History
Tobacco: Smoker
Alcohol: Occasional
Drug: None
Personal:
Living: with family
Employment: Employed
Family History
Family History: Other (Noncontributory)
Phy Exam
Physical Exam
Physical Exam:
GENERAL: Appears uncomfortable
HEENT: normocephalic, extraocular movements intact, moist oral mucosa
NECK: normal inspection
RESPIRATORY: no respiratory distress, clear to auscultation bilaterally
CARDIOVASCULAR: regular rate and rhythm
ABDOMEN/: soft, non-distended, tender to palpation right upper quadrant no rebound or guarding
EXTREMITIES: non-tender, no edema/swelling
NEUROLOGIC: awake and alert, moves all extremities
SKIN: warm
Course
Orders/Labs/Results
Orders:
Orders
03/01/25 18:02
Electrocardiogram (*1) Urgent
Reason for Study: Abdominal Pain
EKG- Treatment ONCE
03/01/25 18:33
Famotidine [Pepcid] 40 mg PO NOW STA
Mag Hydrox/Al Hydrox/Simeth [Maalox] 30 ml Phenobarb/Hyoscy/Atropine/Scop [] 10 ml Viscous Lidocaine 2% [Xylocaine Viscous Cup] 10 ml PO NOW
03/01/25 18:36
Mag Hydrox/Al Hydrox/Simeth [Maalox] 30 ml .ROUTE .STK-MED ONE
Phenobarb/Hyoscy/Atropine/Scop [] 10 ml .ROUTE .STK-MED ONE
Viscous Lidocaine 2% [Xylocaine Viscous Cup] 15 ml .ROUTE .STK-MED ONE
03/01/25 18:37
0.9% Sodium Chloride 1000 ml [Nss] 1,000 ml IV BOLUS
Famotidine [Pepcid] 20 mg IV NOW STA
Ondansetron Injectable [Zofran] 4 mg IV NOW STA
US Abdomen Limited Urgent
Reason For Exam: RUQ pain hx stones
03/01/25 18:45
Complete Blood Count/With Diff Urgent
Comprehensive Metabolic Panel Urgent
Lipase Urgent
Abnormal Lab Results
03/01/25
18:45
RBC 4.46 L 10^6/uL
(4.70-6.10)
MCH 31.8 H pg
(27.0-31.0)
Absolute Monos (auto) 0.8 H 10^3/uL
(0.1-0.6)
Chloride 108 H mmol/L
(98-107)
03/01/25 18:45
03/01/25 18:45
Vital Signs
Initial and Last Documented VS:
Initial Vital Signs
Temp Pulse Resp BP Pulse Ox
98.0 F 84 26 116/92 98
03/01/25 17:57 03/01/25 17:57 03/01/25 17:57 03/01/25 17:57 03/01/25 17:57
Last Documented Vital Signs
Temp Pulse Resp BP Pulse Ox
98.0 F 84 26 116/92 98
03/01/25 17:57 03/01/25 17:57 03/01/25 17:57 03/01/25 17:57 03/01/25 18:40
MDM/Problems Addressed
Differential Diagnosis Includes:
Patient is a 39-year-old male with history of gallstones, gastritis presenting to the emergency department with abdominal pain that started after eating. Vitals unremarkable and on exam patient does appear uncomfortable with tenderness to the right
upper quadrant epigastric region. Concern for acute cholecystitis versus gastritis versus pancreatitis. Will check blood work and obtain ultrasound. Will control symptoms with Zofran Pepcid and fluids. Will also give GI cocktail once nausea is
better under control.
*Pulse Oximetry
SaO2: 98
Oxygen Mode of Delivery: Room air
Patient hypoxic: no (98)
*Critical Care Note
Total Time (30-74mins, 75-104mins- exclusive of procedures): Not Applicable
Update Note
Update Note:
On reevaluation patient is much more comfortable appearing talking on the phone. He states all his symptoms have resolved. Ultrasound negative for acute cholecystitis but he does have echogenicity in the liver. Will have him follow-up with GI.
LFTs are normal. He is tolerating p.o. Will discharge him at this time.
ED Attending Note
-
Portions of this chart may have been created with voice recognition software.� Occasional wrong word or��sound alike� substitutions may have occurred due to the inherent limitations of voice recognition software.
Discharge Plan
Departure
Patient Disposition: Home (Routine Discharge)
Date of Disposition: 03/01/25
Time of Disposition: 21:44
Patient with high blood pressure during this ER visit?: No
Discharge Problem:
Abdominal pain
Prescriptions:
No Action
sucralfate [Carafate] 100 mg/mL suspension
10 ml PO QID PRN (Reason: upper abdominal pain) Qty: 400 0RF
pantoprazole [Protonix] 40 mg tablet,delayed release (DR/EC)
40 mg PO DAILY Qty: 90 0RF
Referrals:
Isidoro Ramirez MD [Family Provider, Family Practice]
Amy Quan MD [Active, Gastroenterology]
Activity Restrictions/Additional Instructions:
You were evaluated in the Emergency Department today for epigastric pain, which is most likely due to irritation of the lining of your stomach. Your symptoms improved with medication in the ED. You can take Mylanta, which is available over the
counter, to help manage your symptoms. Avoid spicy or acidic foods.
Please follow up with your primary care physician within two days. I did provide you with the phone number for GI doctor. Please follow-up with them regarding your liver
Return to the Emergency Department if you experience shortness of breath, worsening or uncontrolled abdominal or chest pain, headache, light headedness, feeling faint, nausea, vomiting, bloody vomit or stools, black tarry stools, or any other
concerning symptoms.
Thank you for choosing us for your care.
Interventions
Interventions:
*Risk Screen - Suicide Last Done: 03/01/25 18:01
*General Assessment Last Done: 03/01/25 18:50
*Neglect/Abuse Screening Last Done: 03/01/25 18:01
*ED- Fall Risk Assessment Last Done: 03/01/25 18:50
*ED COVID-19 Vaccine History Last Done: 03/01/25 18:50
FG-Ywwiim-Uttdxbuyai Assessment Last Done: 03/01/25 18:57
Discharge Date and Time
Print Language: TUVALUAN
[2025-03-01] MEDS: NSS 1000 IV (18:46)
[2025-03-01] MEDS: ZOFRAN 4 MG IV (18:46)
[2025-03-01] MEDS: PEPCID 20 MG IV (18:47)
[2025-03-01 18:50] VITALS: BMI 42.2
[2025-03-01 18:58] LABS: % Basophils 0.3 % (0-2); % Eosinophils 0.9 % (0-6); % Immature Granulocytes 0.4 % (0-0.5); % Monocytes 8.2 % (1.7-9.3); % Neutrophils 68.2 % (42.2-75.2); Absolute Eosinophils 0.1 10^3/uL (0-0.7); Absolute Monocytes 0.8 10^3/uL (0.1-0.6); Absolute Neutrophils 6.3 10^3/uL (1.4-6.5); Hematocrit 39.7 % (39.0-52.0); Hemoglobin 14.2 g/dL (13.0-18.0); Mean Corp Hgb Conc. 35.8 g/dL (33.0-37.0); Mean Corpuscular Hgb 31.8 pg (27.0-31.0); Mean Platelet Volume 9.1 fL (7.4-10.4); Nucleated Red Blood Cells % 0 % (-); Platelet Count 236 10^3/uL (130-400); Red Blood Cell Count 4.46 10^6/uL (4.70-6.10); Red Cell Dist. Width 12.9 % (11.5-14.5); White Blood Cell Count 9.2 10^3/uL (4.8-10.8)
[2025-03-01 19:15] LABS: ALT (SGPT) 12 U/L (0-50); AST (SGOT) 23 U/L (17-59); Albumin 4.2 g/dl (3.5-5.0); Alkaline Phosphatase 42 U/L (38-126); Blood Urea Nitrogen 17 mg/dl (9-20); Calcium 8.6 mg/dl (8.4-10.2); Carbon Dioxide 24 mmol/L (22-30); Chloride 108 mmol/L (98-107); Estimated Creatinine Clearance > 125 ml/min; Glucose 95 mg/dl (70-99); Lipase 52 U/L (23-300); Potassium 4.6 mmol/L (3.5-5.1); Sodium 139 mmol/L (135-145); Total Bilirubin 0.6 mg/dl (0.2-1.3); Total Protein 6.8 g/dl (6.3-8.2); eGFR > 60.00
[2025-03-01] MEDS: MAALOX 50 PO (19:32)
[2025-03-01 21:52] VITALS: BP 102/72
== END 2025-03-01 21:54 | disposition home or self-care (01) ==
LOC: EMR 17:56
PROVIDERS: EMERGENCY PHYSICIAN Student in an Organized Health Care Education/Training Program; FAMILY PHYSICIAN Family Medicine
DX: R10.11 Right upper quadrant pain (principal); R10.13 Epigastric pain; R11.10 Vomiting, unspecified; F17.200 Nicotine dependence, unspecified, uncomplicated; Z98.890 Other specified postprocedural states
CPT/HCPCS: 96374; 96375; 96361; 99284; 76705; 80053; 83690; 85025; 93005

== ENCOUNTER 2025-06-05 17:56 | Emergency (ER) | payer OTHER, SELFPAY ==
[2025-06-05 18:00] VITALS: BP 142/93
[2025-06-05] MEDS: GENOPTIC 0.3% EYE DROPS 1 DROP OPHTH (19:27)
--- NOTE | 2025-06-05 19:37 | ED.SKININJ ---
HPI-Injury
General
Chief Complaint: Eye Problems
Source: patient
Exam Limitations: none
Time Seen by Provider: 06/05/25 19:04
History of Present Illness-Injury
Initial Injury comments:
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 He thought he got a piece of his metal out of the eye with a magnet however he notes persistent irritation. He does not wear
glasses or contacts. No slight blurry vision of the right eye. He notes photosensitivity. No other complaints
Past History
Past History
ED Past Medical History: GERD
ED Past Surgical History: Orthopedic (Right hand surgery); Negative Appendectomy or Bowel resection
Patient has exhibited threatening behavior?: No
Social History
Tobacco: Smoker
Alcohol: Occasional
Drug: None
Personal:
Living: with family
Employment: Employed
Family History
Family History: Other (Noncontributory)
Phy Exam
Physical Exam
Physical Exam:
General: Well-appearing male no acute respiratory distress
HEENT: Bilateral eyes sclera injected pupils are equal round reactive to light anterior chambers are clear. Examination with fluorescein and Walker lamp demonstrates increased stain uptake overlying the cornea and irregular pattern on the right eye.
There is also retained metallic foreign body of the undersurface of the upper lid. The left eye has diffuse scleral injection but no obvious corneal abrasion or foreign bodies.
Skin: Surrounding skin is without erythema or swelling
Course
Orders/Labs/Results
Orders:
Orders
06/05/25 19:22
Gentamicin [Genoptic 0.3% Eye Drops] See Dose Instructions OPHTH NOW STA
Vital Signs
Initial and Last Documented VS:
Initial Vital Signs
Temp Pulse Resp BP Pulse Ox
98.0 F 101 16 142/93 97
06/05/25 18:00 06/05/25 18:00 06/05/25 18:00 06/05/25 18:00 06/05/25 18:00
Last Documented Vital Signs
Temp Pulse Resp BP Pulse Ox
98.0 F 101 16 142/93 97
06/05/25 18:00 06/05/25 18:00 06/05/25 18:00 06/05/25 18:00 06/05/25 18:00
MDM/Problems Addressed
Differential Diagnosis Includes:
Bilateral eye irritation after grinding metal yesterday. There was a retained foreign body in the right eye that was easily removed with a moistened cotton swab. Both eyes were irrigated with saline copiously and started on gentamicin drops.
Stable for disc follow-up with eye doctor
*Pulse Oximetry
SaO2: 97
Oxygen Mode of Delivery: Room air
Patient hypoxic: no
*Critical Care Note
Total Time (30-74mins, 75-104mins- exclusive of procedures): Not Applicable
ED Attending Note
-
Portions of this chart may have been created with voice recognition software.� Occasional wrong word or��sound alike� substitutions may have occurred due to the inherent limitations of voice recognition software.
Discharge Plan
Departure
Patient Disposition: Home (Routine Discharge)
Date of Disposition: 06/05/25
Time of Disposition: 19:39
Patient with high blood pressure during this ER visit?: No
Discharge Problem:
Abrasion, corneal, Foreign body in eye
Prescriptions:
No Action
sucralfate [Carafate] 100 mg/mL suspension
10 ml PO QID PRN (Reason: upper abdominal pain) Qty: 400 0RF
pantoprazole [Protonix] 40 mg tablet,delayed release (DR/EC)
40 mg PO DAILY Qty: 90 0RF
Referrals:
Preethi Nguyen PA [Family Provider, Family Practice]
Activity Restrictions/Additional Instructions:
Use 1 drop both eyes every 4 hours. Follow-up with your eye doctor. Return if worse
Interventions
Interventions:
*Risk Screen - Suicide Last Done: 06/05/25 18:00
*General Assessment Last Done: 06/05/25 18:00
*Neglect/Abuse Screening Last Done: 06/05/25 18:00
*ED- Fall Risk Assessment Last Done: 06/05/25 19:15
*ED COVID-19 Vaccine History Last Done: 06/05/25 18:00
*ED Influenza Vaccine History Last Done: 06/05/25 18:00
Discharge Date and Time
Print Language: SLOVENIAN
== END 2025-06-05 19:48 | disposition home or self-care (01) ==
LOC: EMR 17:56
PROVIDERS: EMERGENCY PHYSICIAN Emergency Medicine; FAMILY PHYSICIAN Physician Assistant
DX: S05.01XA Injury of conjunctiva and corneal abrasion without foreign body, right eye, initial encounter (principal); H02.811 Retained foreign body in right upper eyelid; Z18.10 Retained metal fragments, unspecified; W44.8XXA Other foreign body entering into or through a natural orifice, initial encounter; Y93.89 Activity, other specified; K21.9 Gastro-esophageal reflux disease without esophagitis; F17.200 Nicotine dependence, unspecified, uncomplicated
CPT/HCPCS: 99283

== ENCOUNTER 2025-08-03 17:37 | Emergency (ER) | payer OTHER, SELFPAY ==
[2025-08-03 17:43] VITALS: BP 143/91
[2025-08-03 18:26] LABS: ALT (SGPT) 19 U/L (0-50); AST (SGOT) 20 U/L (17-59); Albumin 4.4 g/dl (3.5-5.0); Alkaline Phosphatase 44 U/L (38-126); Blood Urea Nitrogen 18 mg/dl (9-20); Calcium 8.9 mg/dl (8.4-10.2); Carbon Dioxide 27 mmol/L (22-30); Chloride 104 mmol/L (98-107); Glucose 116 mg/dl (70-99); Potassium 4.3 mmol/L (3.5-5.1); Sodium 137 mmol/L (135-145); Total Protein 7.5 g/dl (6.3-8.2); eGFR > 60.00
[2025-08-03 18:36] LABS: Hematocrit 47.4 % (39.0-52.0); Hemoglobin 16.8 g/dL (13.0-18.0); Mean Corp Hgb Conc. 35.4 g/dL (33.0-37.0); Mean Corpuscular Volume 87.9 fL (80.0-94.0); Nucleated Red Blood Cells % 0 % (-); Platelet Count 200 10^3/uL (130-400); Red Cell Dist. Width 12.7 % (11.5-14.5)
[2025-08-03 19:09] VITALS: BMI 47.1
[2025-08-03 19:22] VITALS: BP 111/83
--- NOTE | 2025-08-03 19:31 | ED.GENMED ---
History of Present Illness
General
Chief Complaint: Abdominal Symptoms
Time Seen by Provider: 08/03/25 19:01
History of Present Illness
History of Present Illness:
39-year-old male with history of GERD, recurrent gastritis, and tobacco use presents to the emergency department for evaluation of multiple complaints. First he notes that he has been vomiting and having diarrhea since this morning. This is
associated with epigastric pain and malaise. He also reports several weeks of bilateral hand paresthesias and bilateral trapezius pain that is worse in the morning and seems to ease up throughout the day. He takes Tylenol however this does not
seem to improve his symptoms. He did have a fever of 40 Celsius this morning
Past History
Past History
ED Past Medical History: GERD
ED Past Surgical History: Orthopedic (Right hand surgery); Negative Appendectomy or Bowel resection
Patient has exhibited threatening behavior?: No
Social History
Tobacco: Smoker
Alcohol: Occasional
Drug: None
Personal:
Living: with family
Employment: Employed
Family History
Family History: Other (Noncontributory)
Review of Systems
Review of Systems
Allergies reviewed?: Yes
All Other Systems: ROS reviewed and negative except as documented in HPI and ROS
Phy Exam
Physical Exam
Physical Exam:
GEN: Well appearing, NAD, WDWN
HEENT: Oral mucosa moist, no scleral icterus
Cardiac: Regular rate and rhythm, no murmurs
Lung: No respiratory distress, no tachypnea
Abdomen: Soft, tender to all 4 quadrants without focal pain
MSK: No gross deformity or injuries
Skin: Good color, no pallor or jaundice, no rashes
Neuro: AO x3, moves all extremities freely
Psych: Calm, cooperative
Course
Orders/Labs/Results
Orders:
Orders
08/03/25 17:47
Electrocardiogram (*1) Urgent
Reason for Study: Other
Other Reason for Exam: Possible Sepsis
EKG- Treatment ONCE
08/03/25 18:04
Complete Blood Count/With Diff Urgent
Comprehensive Metabolic Panel Urgent
Lipase Urgent
Comment: ADD ON
Magnesium Urgent
08/03/25 19:02
Add On- LAB Urgent
Tests Added?: magnesium
08/03/25 19:25
Add On- LAB Urgent
Tests Added?: lipase
08/03/25 19:31
Ketorolac [Toradol] 15 mg IV NOW STA
Lactated Ringers [Lr] 1,000 ml IV BOLUS
Ondansetron Injectable [Zofran] 4 mg IV NOW STA
08/03/25 20:54
HYDROmorphone [Dilaudid] 0.5 mg IV NOW STA
Metoclopramide [Reglan] 10 mg IV NOW STA
08/03/25 21:27
CT Abd/Pel (IV only)-DH only Urgent
Comment:
Reason For Exam: abd pain, fever
08/03/25 21:39
COVID-19 Antigen Urgent
Source: Nasal Swab
Influenza A+B Rapid Molecular Urgent
VICKY Source: Nasal Swab
Specimen Description:
08/03/25 22:54
Oxycodone [Roxicodone] 5 mg PO NOW STA
Abnormal Lab Results
08/03/25
18:04
MCH 31.2 H pg
(27.0-31.0)
Abs Immat Gran (auto) 0.1 H 10^3/uL
(0-0.05)
Absolute Neuts (auto) 7.0 H 10^3/uL
(1.4-6.5)
Absolute Lymphs (auto) 0.6 L 10^3/uL
(1.2-3.4)
Immature Gran % 0.6 H %
(0-0.5)
Neutrophils % 85.8 H %
(42.2-75.2)
Lymphocytes % 7.2 L %
(20.5-51.1)
Glucose 116 H mg/dl
(70-99)
08/03/25 18:04
08/03/25 18:04
Vital Signs
Initial and Last Documented VS:
Initial Vital Signs
Temp Pulse Resp BP Pulse Ox
97.8 F 126 20 143/91 99
08/03/25 17:43 08/03/25 17:43 08/03/25 17:43 08/03/25 17:43 08/03/25 17:43
Last Documented Vital Signs
Temp Pulse Resp BP Pulse Ox
100.5 F H 102 14 118/70 97
08/03/25 21:33 08/03/25 22:45 08/03/25 22:45 08/03/25 22:18 08/03/25 22:45
MDM/Problems Addressed
MDM/Problems Addressed:
His presenting symptoms of vomiting and abdominal pain are likely self-limited viral syndrome given imaging findings. In regards to his neck discomfort and hand paresthesias that have been ongoing for several weeks, this is most likely cervical
radiculopathy. Will trial him on a course of steroids and recommend he talk to his primary care physician about an outpatient MRI
*Pulse Oximetry
SaO2: 99
Oxygen Mode of Delivery: Room air
Patient hypoxic: no
*Critical Care Note
Total Time (30-74mins, 75-104mins- exclusive of procedures): Not Applicable
ED Attending Note
-
Portions of this chart may have been created with voice recognition software.� Occasional wrong word or��sound alike� substitutions may have occurred due to the inherent limitations of voice recognition software.
Discharge Plan
Departure
Patient Disposition: Home (Routine Discharge)
Date of Disposition: 08/03/25
Time of Disposition: 22:51
Patient with high blood pressure during this ER visit?: No
Discharge Problem:
Enteritis, Cervical radiculopathy
Instructions: Nausea and Vomiting, Adult (DC), Radiculopathy of the neck and back (including sciatica) (DC)
Prescriptions:
New
methylprednisolone [Medrol (James)] 4 mg tablets,dose pack
See Rx Instructions .ROUTE .COMPLEX Qty: 21 0RF
Rx Instructions:
for 6 days
oxycodone-acetaminophen [Percocet] 5-325 mg tablet
1 tab PO Q6HPRN PRN (Reason: pain) Qty: 8 0RF
No Action
sucralfate [Carafate] 100 mg/mL suspension
10 ml PO QID PRN (Reason: upper abdominal pain) Qty: 400 0RF
pantoprazole [Protonix] 40 mg tablet,delayed release (DR/EC)
40 mg PO DAILY Qty: 90 0RF
Referrals:
Preethi Nguyen PA [Family Provider, Family Practice]
Interventions
Interventions:
*Risk Screen - Suicide Last Done: 08/03/25 19:09
*General Assessment Last Done: 08/03/25 19:09
*Neglect/Abuse Screening Last Done: 08/03/25 19:09
*ED- Fall Risk Assessment Last Done: 08/03/25 19:09
*ED COVID-19 Vaccine History Last Done: 08/03/25 19:09
*ED Influenza Vaccine History Last Done: 08/03/25 19:09
*Nursing Disposition Last Done: 08/03/25 23:11
HU-Kahcqj-Lxrkwijcyr Assessment Last Done: 08/03/25 19:09
Discharge Date and Time
Discharge Date/Time: 08/03/25 23:12
Print Language: ROMANIAN
[2025-08-03 19:33] LABS: Magnesium 1.6 mg/dl (1.6-2.3)
[2025-08-03 19:39] LABS: Lipase 43 U/L (23-300)
[2025-08-03] MEDS: TORADOL 15 MG IV (19:58)
[2025-08-03] MEDS: ZOFRAN 4 MG IV (19:59)
[2025-08-03] MEDS: LR 1000 IV (19:59)
[2025-08-03 20:00] VITALS: BP 118/66
[2025-08-03 21:00] VITALS: BP 123/81
[2025-08-03] MEDS: REGLAN 10 MG IV (21:20)
[2025-08-03] MEDS: DILAUDID 0.5 MG IV (21:21)
[2025-08-03 21:24] VITALS: BP 112/72
[2025-08-03 22:03] LABS: COVID-19 Antigen Negative (Negative)
[2025-08-03 22:18] VITALS: BP 118/70
[2025-08-03] MEDS: ROXICODONE 5 MG PO (23:02)
== END 2025-08-03 23:12 | disposition home or self-care (01) ==
LOC: EMR 17:37
PROVIDERS: Emergency Medicine; Physician Assistant; EMERGENCY PHYSICIAN Emergency Medicine; FAMILY PHYSICIAN Physician Assistant
DX: K52.9 Noninfective gastroenteritis and colitis, unspecified (principal); M54.12 Radiculopathy, cervical region; K21.9 Gastro-esophageal reflux disease without esophagitis; F17.200 Nicotine dependence, unspecified, uncomplicated
CPT/HCPCS: 99284; 96374; 96375 ×3; 96361; 74177; 80053; 83690; 83735; 85025; 87502; 87811; 93005; Q9967

== ENCOUNTER → 2025-08-06 16:56 | Outpatient (REF) | payer OTHER, SELFPAY | LOC: RAD 16:56 | PROVIDERS: FAMILY PHYSICIAN Physician Assistant | DX: M54.12 Radiculopathy, cervical region (principal) | CPT/HCPCS: 72050 ==

== ENCOUNTER 2025-08-11 13:15 | Emergency (ER) | payer OTHER, SELFPAY ==
[2025-08-11 13:18] VITALS: BP 177/85
--- NOTE | 2025-08-11 14:10 | ED.GENMED ---
History of Present Illness
General
Chief Complaint: Musculo-Skeletal Complaint
Source: patient
Time Seen by Provider: 08/11/25 13:34
History of Present Illness
History of Present Illness:
39-year-old male presenting to the emergency department for evaluation of continued bilateral neck pain with pain radiating throughout both arms and into the hands with paresthesia. Patient seen here earlier in the week for the same, scheduled
undergo MRI in 8 days but due to the persistent nature of the symptoms came to the ER for further evaluation. Patient did note he had some slight relief with the Medrol Dosepak but medication was completed and he had returned of the worsening
symptoms. No new symptoms today. He denies any fevers or new injuries.
Past History
Past History
ED Past Medical History: GERD
ED Past Surgical History: Orthopedic (Right hand surgery); Negative Appendectomy or Bowel resection
Patient has exhibited threatening behavior?: No
Social History
Tobacco: Smoker
Alcohol: Occasional
Drug: None
Personal:
Living: with family
Employment: Employed
Family History
Family History: Other (Noncontributory)
Review of Systems
Review of Systems
All Other Systems: ROS reviewed and negative except as documented in HPI and ROS
Phy Exam
Physical Exam
Physical Exam:
GENERAL: Alert , in no apparent distress
EYE: conjunctiva clear
Head: Normocephalic atraumatic
NECK: Supple, FROM. Generalized tenderness throughout cervical region and bilateral trapezius but worse on the right
ENT: mmm.
LUNGS: no acute respiratory distress
NEUROLOGICAL: Alert and oriented
SKIN: Warm and dry, skin intact.
MUSCULOSKELETAL: well perfused. FROM upper extremities. no sensory or motor deficits
PSYCH: Normal and appropriate interaction.
Scores
Heart Failure Risk
Heart Failure Risk Score: Not Applicable
Heart Score for Chest Pain Patients
STEMI patient?: Not applicable
Withdrawal Assessment of Alcohol
Withdrawal Assessment Completed?: Not applicable
Course
Vital Signs
Initial and Last Documented VS:
Initial Vital Signs
Temp Pulse Resp BP Pulse Ox
97.6 F 106 20 177/85 97
08/11/25 13:18 08/11/25 13:18 08/11/25 13:18 08/11/25 13:18 08/11/25 13:18
Last Documented Vital Signs
Temp Pulse Resp BP Pulse Ox
97.6 F 108 16 129/73 99
08/11/25 13:18 08/11/25 14:30 08/11/25 14:30 08/11/25 14:30 08/11/25 14:30
MDM/Problems Addressed
Differential Diagnosis Includes:
Disc Herniation
Nerve impingement
Spinal stenosis
Less concern for infectious etiology
MDM/Problems Addressed:
39-year-old male presenting to the ER for continued pain within the cervical spine, radicular pain to the upper extremities. Seen in the ER earlier this week, started on Medrol pack with some resolution of symptoms transiently but pain is now
returned. Has an MRI scheduled within the next 8 days. Has already had x-ray imaging. No focal neurologic symptoms. Will trial gabapentin, a longer-term steroid taper and Valium for muscle relaxer. Encourage patient to follow-up with primary
care provider for continued symptoms but did discuss return precautions.
*Pulse Oximetry
SaO2: 97
Oxygen Mode of Delivery: Room air
Patient hypoxic: no
*Critical Care Note
Total Time (30-74mins, 75-104mins- exclusive of procedures): Not Applicable
Data Reviewed
Review of Other/Old Records Reveals: Records and Radiology Studies
ED Attending Note
-
Portions of this chart may have been created with voice recognition software.� Occasional wrong word or��sound alike� substitutions may have occurred due to the inherent limitations of voice recognition software.
Discharge Plan
Departure
Patient Disposition: Home (Routine Discharge)
Date of Disposition: 08/11/25
Time of Disposition: 14:10
Patient with high blood pressure during this ER visit?: Yes
Discharge Problem:
Cervical radiculopathy
Instructions: Radiculopathy of the neck and back (including sciatica) (DC)
Prescriptions:
New
prednisone 10 mg Tablet
See Rx Instructions .ROUTE .COMPLEX Qty: 45 0RF
Rx Instructions:
Take By Mouth:
50 mg daily x3 days, 40 mg daily x3 days,
30 mg daily x3 days, 20 mg daily x3 days,
10 mg daily x3 days
diazepam [Valium] 5 mg tablet
5 mg PO BID PRN (Reason: muscle spasm) Qty: 8 0RF
gabapentin 300 mg capsule
300 mg PO BID Qty: 10 0RF
No Action
sucralfate [Carafate] 100 mg/mL suspension
10 ml PO QID PRN (Reason: upper abdominal pain) Qty: 400 0RF
pantoprazole [Protonix] 40 mg tablet,delayed release (DR/EC)
40 mg PO DAILY Qty: 90 0RF
methylprednisolone [Medrol (James)] 4 mg tablets,dose pack
See Rx Instructions .ROUTE .COMPLEX Qty: 21 0RF
Rx Instructions:
for 6 days
oxycodone-acetaminophen [Percocet] 5-325 mg tablet
1 tab PO Q6HPRN PRN (Reason: pain) Qty: 8 0RF
Referrals:
Preethi Nguyen PA [Family Provider, Family Practice]
Interventions
Interventions:
*Risk Screen - Suicide Last Done: 08/11/25 14:30
*General Assessment Last Done: 08/11/25 14:30
*Neglect/Abuse Screening Last Done: 08/11/25 14:30
*ED COVID-19 Vaccine History Last Done: 08/11/25 14:30
*ED Influenza Vaccine History Last Done: 08/11/25 14:30
*Nursing Disposition Last Done: 08/11/25 14:30
ED-Musculoskeletal Assessment Last Done: 08/11/25 14:30
Discharge Date and Time
Discharge Date/Time: 08/11/25 14:30
Print Language: MAURITIAN
[2025-08-11 14:30] VITALS: BP 129/73
== END 2025-08-11 14:30 | disposition home or self-care (01) ==
LOC: EMR 13:15
PROVIDERS: EMERGENCY PHYSICIAN Emergency Medicine; FAMILY PHYSICIAN Physician Assistant
DX: M54.12 Radiculopathy, cervical region (principal); F17.200 Nicotine dependence, unspecified, uncomplicated
CPT/HCPCS: 99283